=== PATIENT | male | born 1995 | race Caucasian/White ===

== ENCOUNTER 2018-08-19 21:22 | Emergency (ER) | payer MEDICAID ==
[2018-08-20 01:41] LABS: Basophils % (A) 0 %; Eosinophils # (A) 0.1 k/uL (0-0.7); Eosinophils % (A) 1 %; HCT 44.3 % (39.0-53.0); HGB 15.9 gm/dL (13.0-17.5); Lymphocytes # (A) 3.1 k/uL (1.0-4.8); Lymphocytes % (A) 45 %; MCH 30.7 pg (25.0-35.0); MCV 85.4 fL (80.0-100.0); Mean Platelet Volume 6.7; Monocytes # (A) 0.4 k/uL (0-1.0); Monocytes % (A) 6 %; Neutrophils # (A) 3.1 k/uL (1.3-7.7); Neutrophils % (A) 45 %; Platelet Count 165 k/uL (150-450); RBC 5.19 m/uL (4.30-5.90); RDW 12.6 % (11.5-15.5); WBC 6.8 k/uL (3.8-10.6)
[2018-08-20 01:50] LABS: ALT 70 U/L (21-72); AST 35 U/L (17-59); Albumin 4.3 g/dL (3.5-5.0); Alkaline Phosphatase 95 U/L (38-126); Anion Gap 9 mmol/L; Blood Urea Nitrogen 12 mg/dL (9-20); Calcium 9.6 mg/dL (8.4-10.2); Carbon Dioxide 27 mmol/L (22-30); Chloride 105 mmol/L (98-107); Creatine Kinase 203 U/L (55-170); Glucose 111 mg/dL (74-99); Potassium 3.8 mmol/L (3.5-5.1); Sodium 141 mmol/L (137-145); Total Bilirubin 0.4 mg/dL (0.2-1.3); Total Protein 7.3 g/dL (6.3-8.2)
--- NOTE | 2018-08-20 01:53 | XR ---
EXAMINATION TYPE: XR pelvis AP view DATE OF EXAM: 08/20/2018 COMPARISON: 10/13/2013 HISTORY: Right hip pain TECHNIQUE: Single view FINDINGS: Pelvic ring is intact and proximal right femur and hip joint appear normal. Sacroiliac join ts are normal. IMPRESSION: Normal pelvis.
--- NOTE | 2018-08-20 01:55 | XR ---
EXAMINATION TYPE: XR femur RT DATE OF EXAM: 08/20/2018 COMPARISON: 12/30/2016 HISTORY: Right hip pain TECHNIQUE: 4 views FINDINGS: Hip joint and knee joint appear intact. I see no fracture nor dislocation. There is no sign of knee joint effusion. There are no pathologic calcifications. IMPRESSION: Negative right femur exam. No change.
[2018-08-20] MEDS ORDERED: ORPHENADRINE 30 MG/ML 2 ML VIAL IVP STA (02:23)
[2018-08-20] MEDS ORDERED: KETOROLAC 30 MG/ML 1 ML VIAL IVP STA (02:23)
--- NOTE | 2018-08-20 02:23 | ED ---
Lower Extremity Injury HPI - General Chief Complaint: Extremity Injury, Lower Stated Complaint: Severe leg pain Time Seen by Provider: 08/20/18 00:12 Source: patient Mode of arrival: ambulatory Limitations: no limitations - History of Present Illness Initial Comments: 22-year-old male patient presents to emergency department today for evaluation of bilateral thigh pain. Patient states that he was intoxicated last evening and does not recall most of the night. States and he woke up this morning he was having severe pain to the anterior thighs. States he is tender over the right distal thigh and over the right hip. Patient states he is able to walk however when he attempts to lift his legs he has increase in pain. He denies any other injuries. Denies any headache, neck pain, back pain, chest pain, shortness of breath, or abdominal pain. Patient denies any headache, shortness of breath, dizziness, weakness, nausea, vomiting, or difficulties with bowel movements or urination. - Related Data Previous Rx's Medication Instructions Recorded Ibuprofen [Motrin] 600 mg PO Q8HR PRN #20 tab 09/09/16 Ibuprofen [Motrin] 800 mg PO Q6HR PRN #20 tab 12/30/16 Ibuprofen [Motrin] 600 mg PO Q8HR PRN #30 tab 08/20/18 Allergies Allergy/AdvReac Type Severity Reaction Status Date / Time No Known Allergies Allergy Verified 08/19/18 21:51 Review of Systems ROS Statement: Those systems with pertinent positive or pertinent negative responses have been documented in the HPI. ROS Other: All systems not noted in ROS Statement are negative. Past Medical History Past Medical History: No Reported History History of Any Multi-Drug Resistant Organisms: None Reported Past Surgical History: No Surgical Hx Reported Past Psychological History: No Psychological Hx Reported Smoking Status: Never smoker Past Alcohol Use History: Occasional Past Drug Use History: None Reported General Exam Limitations: no limitations General appearance: alert, in no apparent distress, other (This is a well- developed, well-nourished adult male patient in no acute distress. Vital signs upon presentation are temperature 98.9F, pulse 81, respirations 18, blood pressure 147/89, pulse ox 99% on room air.) Eye exam: Present: normal appearance, PERRL, EOMI. Absent: scleral icterus, conjunctival injection, periorbital swelling ENT exam: Present: normal exam, normal oropharynx, mucous membranes moist Neck exam: Present: normal inspection, full ROM, other (Nontender, no step-off, no deformity to firm midline palpation of the posterior cervical spine. Full range of motion without pain or limitation.). Absent: tenderness, meningismus, lymphadenopathy Respiratory exam: Present: normal lung sounds bilaterally. Absent: respiratory distress, wheezes, rales, rhonchi, stridor Cardiovascular Exam: Present: regular rate, normal rhythm, normal heart sounds. Absent: systolic murmur, diastolic murmur, rubs, gallop, clicks GI/Abdominal exam: Present: soft, normal bowel sounds. Absent: distended, tenderness, guarding, rebound, rigid Extremities exam: Present: normal inspection, full ROM, tenderness (Tenderness over the right and left anterior thigh), normal capillary refill, other (Skin to the lower extremities is pink, warm, dry. Cap refills less than 3 seconds. Pedal and posttibial pulses 2+ and equal bilaterally.). Absent: pedal edema, joint swelling, calf tenderness Back exam: Present: normal inspection. Absent: vertebral tenderness Neurological exam: Present: alert, oriented X3, CN II-XII intact Psychiatric exam: Present: normal affect, normal mood Skin exam: Present: warm, dry, intact, normal color. Absent: rash Course Vital Signs 08/19/18 08/20/18 21:49 02:36 Temperature 98.9 F 98.3 F Pulse Rate 81 78 Respiratory 18 19 Rate Blood Pressure 147/89 140/90 O2 Sat by Pulse 99 98 Oximetry Medical Decision Making - Medical Decision Making 22-year-old male patient percents to the emergency department today for evaluation of bilateral thigh pain. Physical examination is relatively unremarkable however he did exhibit some tenderness over the bilateral anterior thighs. Skin is pink, warm, dry. Neurovascular status intact. X-rays of the pelvis and right femur were obtained, showed no acute osseous abnormalities. Labs were performed to rule out rhabdomyolysis. Labs are within normal range. Did discuss findings and results with the patient. We did discuss muscle strain of the quadriceps. He is instructed to take anti-inflammatory pain medication and rest. He is instructed to follow-up with his primary care physician for recheck in 1-2 days. Return parameters discussed in detail. He verbalizes understanding and agrees with this plan. - Lab Data Result diagrams: 08/20/18 01:20 08/20/18 01:20 Lab Results 08/20/18 08/20/18 Range/Units 01:20 01:20 WBC 6.8 (3.8-10.6) k/uL RBC 5.19 (4.30-5.90) m/uL Hgb 15.9 (13.0-17.5) gm/dL Hct 44.3 (39.0-53.0) % MCV 85.4 (80.0-100.0) fL MCH 30.7 (25.0-35.0) pg MCHC 36.0 (31.0-37.0) g/dL RDW 12.6 (11.5-15.5) % Plt Count 165 (150-450) k/uL Neutrophils % 45 % Lymphocytes % 45 % Monocytes % 6 % Eosinophils % 1 % Basophils % 0 % Neutrophils # 3.1 (1.3-7.7) k/uL Lymphocytes # 3.1 (1.0-4.8) k/uL Monocytes # 0.4 (0-1.0) k/uL Eosinophils # 0.1 (0-0.7) k/uL Basophils # 0.0 (0-0.2) k/uL Sodium 141 (137-145) mmol/L Potassium 3.8 (3.5-5.1) mmol/L Chloride 105 (98-107) mmol/L Carbon Dioxide 27 (22-30) mmol/L Anion Gap 9 mmol/L BUN 12 (9-20) mg/dL Creatinine 0.84 (0.66-1.25) mg/dL Est GFR (CKD-EPI)AfAm >90 (>60 ml/min/1.73 sqM) Est GFR (CKD-EPI)NonAf >90 (>60 ml/min/1.73 sqM) Glucose 111 H (74-99) mg/dL Calcium 9.6 (8.4-10.2) mg/dL Total Bilirubin 0.4 (0.2-1.3) mg/dL AST 35 (17-59) U/L ALT 70 (21-72) U/L Alkaline Phosphatase 95 (38-126) U/L Creatine Kinase 203 H (55-170) U/L Total Protein 7.3 (6.3-8.2) g/dL Albumin 4.3 (3.5-5.0) g/dL - Radiology Data Radiology results: report reviewed, image reviewed 4 views of the right femur obtained. Report was reviewed in its entirety. Impression by Dr. Jauregui shows negative right femur exam. No change. AP view of the pelvis was obtained. Report was reviewed in its entirety. Impression by Dr. Jauregui shows normal pelvis. Disposition Clinical Impression: Muscle strain of left thigh, Muscle strain of right thigh Disposition: HOME SELF-CARE Condition: Good Instructions: Muscle Strain (ED) Additional Instructions: Take medications as directed. Rest the legs, apply cool compresses. Follow-up with primary care physician for recheck in 1-2 days. Return immediately for any new, worsening, or concerning symptoms. Prescriptions: Ibuprofen [Motrin] 600 mg PO Q8HR PRN #30 tab PRN Reason: Pain Is patient prescribed a controlled substance at d/c from ED?: No Referrals: None,Stated [Primary Care Provider] - 1-2 days Time of Disposition: 02:23
[2018-08-20 02:46] VITALS: BP 140/90; PULSE 78; RESP 19; TEMP 98.3
== END 2018-08-20 02:36 | disposition home or self-care (01) ==
LOC: EC 21:22
DX: S76.911A Strain of unspecified muscles, fascia and tendons at thigh level, right thigh, initial encounter (principal); S76.912A Strain of unspecified muscles, fascia and tendons at thigh level, left thigh, initial encounter; X58.XXXA Exposure to other specified factors, initial encounter
CPT/HCPCS: 36415; 80053; 82550; 85025; 72170; 73552; 99283; 96374; 96375; J2360; J1885